=== PATIENT | female | born 1965 | race Caucasian/White ===

== ENCOUNTER 2017-10-25 07:31 | Inpatient (IN) | payer MEDICARE, BC ==
[2017-10-25 08:16] LABS: #Lymphocytes 0.6 thou/uL (1.20-3.40); #Monocytes 0.3 thou/uL (0.11-0.59); #Neutrophils 14.9 thou/uL (1.40-6.50); %Basophils 0.1 % (0.0-1.0); %Eosinophils 0.1 % (0.0-10.0); Hematocrit 47.7 % (36.0-47.0); Mean Platelet Volume 7.7 fL (7.4-10.4); Red Blood Cell (RBC) Count 5.35 mill/uL (4.20-5.40); White Blood Cell (WBC) Count 15.9 thou/uL (4.8-10.8)
[2017-10-25] MEDS ORDERED: Ondansetron HCl/PF 4 MG/2 ML Vial ONE ×2 (08:16→11:40)
[2017-10-25 08:36] LABS: ALT (SGPT) 13 U/L (8-55); AST (SGOT) 12 U/L (5-34); Alkaline Phosphatase 65 U/L (40-150); Anion Gap 16 mmol/L (10-20); BUN (Urea Nitrogen) 16 mg/dL (9.8-20.1); Bilirubin, Total 0.4 mg/dL (0.2-1.2); Calc. Creatinine Clearance 0 mL/min (70-130); Calcium 10.3 mg/dL (7.8-10.44); Carbon Dioxide 22 mmol/L (22-29); Chloride 101 mmol/L (98-107); Estimated GFR-MDRD 75; Lipase 6 U/L (8-78); Protein, Total 8.3 g/dL (6.0-8.3)
[2017-10-25] MEDS ORDERED: Morphine 4 MG/ML VIAL ONE (08:45)
[2017-10-25 09:03] LABS: Bilirubin Negative (Negative); Blood, Urine Moderate (Negative); Glucose, Urine (Dipstick) >=1000 mg/dL (Negative); Ketone, Urine Trace mg/dL (Negative); Nitrite Negative (Negative); Protein, Urine (Dipstick) 100 mg/dL (Neg-Trace); Urobilinogen 0.2 mg/dL (0.2-1.0)
[2017-10-25 09:04] LABS: Bacteria/HPF Rare-Few HPF (None Seen); Hyaline Casts/LPF 4-6 HYALINE CAST LPF (0-3 Hyaline); Squamous Epithelial 0-3 HPF (0-3)
[2017-10-25] MEDS ORDERED: Benzocaine 20% Spray 60 ML CAN ONE (11:13)
--- NOTE | 2017-10-25 11:41 | CT ---
ABDOMEN CT WITHOUT CONTRAST PELVIC CT WITH CONTRAST: Date: 10/25/17 COMPARISON: 02/26/13. HISTORY: Epigastric pain. Nausea. Vomiting. Multiple surgeries. TECHNIQUE: Abdomen and pelvic CT are performed with IV and enteric contrast. Coronal reformatted images are subm itted for interpretation. FINDINGS: ABDOMEN CT: Heart size is within normal limits. No pericardial effusion. Descending thoracic aorta and abdominal aorta have a normal caliber. No periaortic fat stranding. Visualized lung parenchyma are unremarkable . There is complex perihepatic fluid. The liver, spleen, pancreas, and adrenal glands have appropriat e enhancement. Mild atrophy of the head and proximal pancreatic body. Gallbladder is surgically absent. There is a 1.3 x 0.8 cm calculus in the right ureteropelvic junction with associated moderate right-s ided hydronephrosis. There is a nonobstructing 3.0 mm calcification in the lower pole of the right ki dney. There is slight delay in the enhancement of the right kidney when compared to the contralateral side. The right ureter and the left intra and extrarenal collecting system are decompressed. No mesenteric mass, lymphadenopathy, or free air. Symmetric attenuation of the psoas muscles. Stomach and duodenum and proximal small bowel loops are unremarkable. Mid small bowel loops (jejunum) have dilatation with contrast and fluid. There is a ventral abdominal wall hernia containing mesente ry and fluid. The presence of fluid is similar to the prior examination. There is a segment of small bowel extending through the hernia with evidence of local fecalization. There is an anastomotic sutur e. There is dilatation of the afferent loops and decompression of the efferent loops. The transition point is felt to be at the level of the anastomosis. Distal small bowel loops are decompressed. Ileoc ecal junction is normal. Small amount of fluid at the cecal apex is noted. There is a small amount of fluid in the right paracolic gutter. Colon is decompressed. PELVIC CT: Uterus and adnexal structures are unremarkable. Urinary bladder is decompressed. No pelvic mass, lymp hadenopathy, free air, or free fluid. There are no lytic or blastic lesions in the osseous structures. IMPRESSION: 1. Ventral abdominal wall hernia containing mesentery and segment of small bowel at the defect. Ther e is an anastomosis at the level of the herniated small bowel. There is fecalization. There is associ ated obstruction which may in part be due to surgical anastomosis and in part due to ventral abdomina l wall hernia. Surgical consultation is recommended. 2. Moderate right-sided obstructive uropathy secondary to large calculus in the right ureteropelvic junction. Results of study discussed with Dr. Bean on 10/25/17 at 1038 hours. CODE CR. POS: MARIA M
[2017-10-25] MEDS ORDERED: Glycopyrrolate 0.2 MG/ML 5 ML SYRINGE ONE (11:58)
[2017-10-25] MEDS ORDERED: Propofol 200 MG/20 ML VIAL ONE (11:58)
[2017-10-25] MEDS ORDERED: Lidocaine 1% PF 5 ML VIAL ONE (11:58)
[2017-10-25] MEDS ORDERED: Succinylcholine Chloride 20 MG/ML 10 ml SYRINGE FS ONE (11:58)
[2017-10-25] MEDS ORDERED: Midazolam HCl 2 mg/2 ml Vial ONE (12:47)
[2017-10-25] MEDS ORDERED: Fentanyl 100 MCG/2 ML VIAL ONE ×2 (12:47→15:14)
[2017-10-25] MEDS ORDERED: Iothalamate Meglumine 60% 50 ML VIAL FS ONE (12:57)
[2017-10-25] MEDS ORDERED: cefTRIAXone\\ROCEPHIN 1 GM VIAL ONE (13:54)
[2017-10-25] MEDS ORDERED: Labetalol HCl 100 MG/20 ML VIAL ONE (14:32)
[2017-10-25] MEDS ORDERED: hydrALAZINE 20 MG/ML VIAL ONE (14:44)
[2017-10-25] MEDS ORDERED: Dextrose 5% in Water 1,000 ML IV PRN (16:17)
[2017-10-25] MEDS ORDERED: Dextrose 50% Abboject 50 ML SYRINGE SLOW IVP PRN (16:17)
[2017-10-25] MEDS: hydrALAZINE 20 MG/ML VIAL SLOW IVP PRN (16:40)
[2017-10-25] MEDS: Sodium Chloride 0.9% 1,000 ML IV SCH (16:42)
[2017-10-25] MEDS: Morphine 2 mg/2ml in 0.9% NaCl PF SYRINGE SLOW IVP PRN (16:51)
[2017-10-25 16:55] LABS: #Lymphocytes 0.9 thou/uL (1.20-3.40); #Monocytes 0.9 thou/uL (0.11-0.59); #Neutrophils 15.1 thou/uL (1.40-6.50); %Basophils 0.2 % (0.0-1.0); %Eosinophils 0.1 % (0.0-10.0); %Lymphocytes 5.2 % (21.0-51.0); %Monocytes 5.1 % (0.0-10.0); Hematocrit 43.8 % (36.0-47.0); Mean Platelet Volume 7.5 fL (7.4-10.4); Red Blood Cell (RBC) Count 4.91 mill/uL (4.20-5.40); White Blood Cell (WBC) Count 16.9 thou/uL (4.8-10.8)
[2017-10-25 17:01] LABS: Hemoglobin A1c 7.4 % (4.0-6.0)
[2017-10-25 17:09] LABS: Anion Gap 15 mmol/L (10-20); BUN (Urea Nitrogen) 15 mg/dL (9.8-20.1); Calc. Creatinine Clearance 0 mL/min (70-130); Calcium 9.3 mg/dL (7.8-10.44); Carbon Dioxide 20 mmol/L (22-29); Chloride 104 mmol/L (98-107); Estimated GFR-MDRD 84
[2017-10-25] MEDS ORDERED: Labetalol HCl 100 MG/20 ML VIAL SLOW IVP PRN (17:25)
--- NOTE | 2017-10-25 17:30 | PDOC.PN ---
- Subjective Encounter Start Date: 10/25/17 Encounter Start Time: 17:29 Pt seen for management of hypertensive urgency. Denies headache. Denies nausea or vomiting. c/o abdo pain. - Objective MAR Reviewed: Yes Vital Signs & Weight: Vital Signs (12 hours) Pulse 10/25/17 16:40 125 H Result Diagrams: 10/25/17 16:47 10/25/17 16:42 EKG Reviewed by me: Yes (Tele: sinus tachycardia) Phys Exam - Physical Examination Obese HEENT: sclera anicteric Dry mucsae, NG tube+ Respiratory: clear to auscultation bilateral Cardiovascular: RRR sluggish bowel sounds Neurological: moves all 4 limbs Psychiatric: normal affect Dx/Plan (1) Hypertensive urgency Code(s): I16.0 - HYPERTENSIVE URGENCY Status: Acute (2) DM2 (diabetes mellitus, type 2) Status: Chronic (3) Dyslipidemia Code(s): E78.5 - HYPERLIPIDEMIA, UNSPECIFIED Status: Chronic - Plan DVT proph w/SCDs * . Continue PRN IV hydralazine, add PRN IV labetalol. Start clonidine patch. Continue accuchecks, insulin sliding scale. Hold statin for now (pt is NPO). Continue IV fluids. Pain management per primary service. Review of Systems - Review of Systems Cardiovascular: negative: Chest Pain, Palpitations, Orthopnea, Paroxysmal Noc. Dyspnea, Edema, Light Headedness Gastrointestinal: Abdominal Pain, Constipation Neurological: negative: Weakness, Numbness, Incoordination, Change in Speech, Confusion, Seizures - Medications/Allergies Allergies/Adverse Reactions: Allergies Allergy/AdvReac Type Severity Reaction Status Date / Time No Known Allergies Allergy Unverified 10/25/17 16:08 Medications: Current Medications Clonidine (Nqkfueto-Ynm-3 Patch) 0.1 mg TD Q7DAYS ANNELISE Dextrose/Water (Dextrose 50%) 25 gm SLOW IVP PRN PRN PRN Reason: Hypoglycemia Glucagon (Glucagon) 1 mg IM PRN PRN PRN Reason: Hypoglycemia Hydralazine HCl (Apresoline) 10 mg SLOW IVP Q4H PRN PRN Reason: Hypertension Last Admin: 10/25/17 16:40 Dose: 10 mg Acetaminophen 1,000 mg/ Device 100 mls @ 400 mls/hr IVPB Q6H PRN PRN Reason: Fever/Mild Pain Stop: 10/26/17 16:18 Dextrose/Water (D5w) 1,000 mls @ 0 mls/hr IV .Q0M PRN; As Directed PRN Reason: Hypoglycemia Sodium Chloride (Normal Saline 0.9%) 1,000 mls @ 120 mls/hr IV .Q8H20M ANNELISE Last Admin: 10/25/17 16:42 Dose: 1,000 mls Piperacillin Sod/Tazobactam (Sod 3.375 gm/ Sodium Chloride) 100 mls @ 200 mls/ hr IVPB Q6HR [facility] Insulin Human Lispro (Humalog) 0 units SC .MILD SLIDING SCALE PRN PRN Reason: Mild Correctional Scale Labetalol HCl (Normodyne) 10 mg SLOW IVP Q4H PRN PRN Reason: SBP Greater Than 180 Morphine Sulfate/Sodium Chloride (Morphine 0.9% Nacl Pf 2 Mg/2ml) 2 mg SLOW IVP Q4H PRN PRN Reason: Pain Last Admin: 10/25/17 16:51 Dose: 2 mg Pantoprazole Sodium (Protonix) 40 mg IVP DAILY [facility] Tamsulosin HCl (Flomax) 0.4 mg PO DAILY [facility]
[2017-10-25] MEDS: Labetalol HCl 100 MG/20 ML VIAL SLOW IVP PRN ×2 (17:41→21:46)
--- NOTE | 2017-10-25 17:43 | OP ---
DATE OF SERVICE: 10/25/2017 PREOPERATIVE DIAGNOSIS: Right large ureteropelvic junction stone. POSTOPERATIVE DIAGNOSIS: Right large ureteropelvic junction stone. PROCEDURE: Cystoscopy, no need for retrograde given the remaining contrast from the IV during the CT scan and placement of 6 x 26 double-J ureteral stent. SURGEON: Neelima Perez M.D. ANESTHESIA: General with ET tube. FINDINGS: Retained contrast in the hydronephrotic right renal collecting system , adequate placement of stent. ESTIMATED BLOOD LOSS: None. COMPLICATIONS: None. DRAIN REMAININ x 26 double-J. SPECIMEN: Urine from the right renal pelvis. INDICATIONS: The patient is a 52-year-old female who was admitted acutely with concern for partial small-bowel obstruction as well as an obstructing right UPJ stone, which is relatively asymptomatic from a pain standpoint and concern for UTI, so she was sent for urgent stent. DESCRIPTION OF PROCEDURE. The patient was brought to the room by anesthesia, laid on the table in the supine position after given general anesthetic, legs placed in lithotomy position and her perineum was prepped and draped in sterile fashion. Using a 21 Nepali scope and 30-degree lens, it was traversed and bladder inspected. No lesions were noted. Right orifice was intubated with a Pollack catheter and as fluoroscopy was getting set, it was advanced up to the level of stone where resistance was noted and at this point, fluoroscopy was obtained before even adding contrast and this stent was right at the level of the stone with contrast filling the hydronephrotic collecting system. It could not push beyond the stone itself, so a wire was used to go beyond it and that went easily and then the Pollack catheter was placed over the wire. The wire removed. No hydronephrotic drip was noted, but approximately 12 mL of yellow urine was collected and sent for specimen. Then, measurements were taken for 6 x 26 that was placed over the wire with good curl visualized in the renal pelvis via fluoroscopy and a good coil visualized in the bladder via cystoscopy with effuse noted. Scope was broken apart, bladder drained and then removed in its entirety. The patient tolerated the procedure well and was then awakened and transferred to the PACU in stable condition. NISSA
[2017-10-25] MEDS: HumaLOG 300 UNITS/3 ML VIAL SC PRN ×2 (17:44→22:33)
[2017-10-25 17:59] VITALS: BMI 49.1
[2017-10-25] MEDS ORDERED: cloNIDine 0.1mg/24 Hour PATCH TD SCH (18:00)
[2017-10-25] MEDS ORDERED: FLU VACC QS2017-18 36 mo. & older 0.5 ML SYRINGE IM ONE (18:45)
[2017-10-25] MEDS: Piperacillin/Tazobactam 3.375 GM in Sodium Chloride 0.9% 100 ML IVPB SCH ×2 (18:59→23:37)
--- NOTE | 2017-10-25 19:37 | HP ---
CHIEF COMPLAINT: Abdominal pain. HISTORY: Ms. Ralf Carcamo is a 52-year-old woman with a 1-day history of abdominal pain. She states that this came on yesterday morning and has been slowly worsening since then with nausea and vomitin g. She had a bowel movement on , but no bowel movement yesterday or today but has been passi ng some gas. She has had several episodes of bowel obstruction in the past and these symptoms are si milar to those episodes. Nothing that she has tried to do at home has helped, [facility]. She denies any dysuria, frequency, or urgency and she does complain of pain in her back as well as her abdomen. PAST MEDICAL HISTORY: Hypertension and diabetes. PAST SURGICAL HISTORY: Cholecystectomy; hernia repair x2, one open with bowel resection and one lapa roscopic with mesh placement; also a history of appendectomy. ALLERGIES: She has no known drug allergies. OUTPATIENT MEDICATIONS: Include Wellbutrin, Zoloft, atenolol, amlodipine, Erick, and Zantac. REVIEW OF SYSTEMS: Ten-system review of systems is negative except per HPI and the following: the pa shy does state that she is having pain in her back and since the NG tube was placed, she is having pain in her throat. She denies any fevers or chills. PHYSICAL EXAMINATION: VITAL SIGNS: Heart rate was elevated in the emergency room in the 120s and came down somewhat after pain medication and IV fluids. Blood pressure was in the high range and got up as far as 202/116. S he was 96% saturated on room air with normal respiratory rate. GENERAL: Reveals a morbidly obese woman in no acute distress with an NG tube in place with bilious t hick output. HEENT: Unremarkable. NECK: Supple, without lymphadenopathy or thyroid nodules. HEART: Slightly tachycardic but regular, without murmurs, rubs, or gallops. LUNGS: Clear bilaterally. ABDOMEN: Soft and nondistended. She has an easily reducible ventral hernia with what seems to be a separate umbilical hernia just inferior to this, which is also reducible, although it is somewhat ten adela. She does have bowel sounds present, although these are somewhat difficult to hear due to her olga dy habitus. She has a healed upper midline incision and does not exhibit rigidity, rebound, or guard ing. No palpable masses. EXTREMITIES: Warm and well perfused without edema. NEUROLOGIC: No focal deficits. PSYCHIATRIC: Alert, oriented, and appropriate. LABORATORY AND X-RAY FINDINGS: Showed an elevated white count on admission at 15.9, hematocrit of 47 .7, and platelets of 380. Electrolytes were unremarkable. Glucose was elevated at 251 and urine chuck wed greater than 1000 glucose. She also had small leukocyte esterase and greater than 50 white cells in her urine with 0-3 squamous epithelial cells and a few bacteria. CT images are reviewed and I ag ree with the written report. The patient has a recurrent ventral hernia containing loops of small in testine including her previous small bowel anastomosis. There is a transition point near the hernia, although it is difficult to identify exactly where it is. The hernia is very broad based; however, there is no edema or stranding in the mesentery to suggest ischemia or incarceration. She was incide ntally noted to have a large partially-obstructing stone at the right ureteropelvic junction with res ulting hydronephrosis. ASSESSMENT: Small-bowel obstruction, partial by history as the patient states that she has been pass ing gas. Her abdominal pain has improved quite a bit since placement of the NG tube and she is no lo nger nauseated. She has previously responded to conservative management and we will give this a tria l. She has undergone at least 2 previous repairs of her ventral hernia and has a very high risk for recurrence due to a body mass index of 49 and what appears to be uncontrolled diabetes. I will ask M leslie to consult for her uncontrolled diabetes and hypertension and I have ordered a hemoglobin A1c . She states that usually her blood sugars are in the 120s to 140s in the morning and less than 100 at night. Urology was consulted in the emergency room for her partially-obstructing ureteropelvic ju nction stone in the setting of lab evidence of urinary tract infection. She does not appear to be se ptic, but certainly has a risk for this and Dr. Perez has placed a ureteral stent to relieve the hyd ronephrosis. We will keep her on antibiotics for her urinary tract infection and follow up with Diego carrillo regarding their recommendations for management of this problem. I suspect that the patient's bow el obstruction is due to adhesions. The anastomosis appears to be patent on her CT scan, so hopefull y, this will resolve with bowel decompression and rest.
--- NOTE | 2017-10-25 19:41 | RAD ---
RETROGRADE PYELOGRAM 10/25/17 COMPARISON: None. HISTORY: Stent placement. FINDINGS: A single image from a retrograde pyelogram is provided. There is cone down view of a dilated renal co llecting system and hydronephrotic kidney provided. There is a wire curling in the dilated upper pole calyx. IMPRESSION: Hydronephrosis with wire curling within the hydronephrotic kidney. POS: LIZZETH
[2017-10-25] MEDS: Morphine 5 mg/5 ml in 0.9% NaCl/PF SYRINGE SLOW IVP PRN (20:04)
[2017-10-25] MEDS: Acetaminophen 1,000 MG in Premix Bag 1 BAG IVPB PRN (21:49)
[2017-10-25] MEDS ORDERED: diphenhydrAMINE 50 MG/ML VIAL IVP PRN (22:14)
[2017-10-25] MEDS ORDERED: Ketorolac Tromethamine 30 MG/ML VIAL IVP SCH (22:15)
[2017-10-26] MEDS: Labetalol HCl 100 MG/20 ML VIAL SLOW IVP PRN ×2 (02:36→09:09)
[2017-10-26] MEDS: Sodium Chloride 0.9% 1,000 ML IV SCH ×3 (02:42→18:12)
[2017-10-26] MEDS: Piperacillin/Tazobactam 3.375 GM in Sodium Chloride 0.9% 100 ML IVPB SCH ×4 (05:53→23:45)
[2017-10-26] MEDS: Morphine 5 mg/5 ml in 0.9% NaCl/PF SYRINGE SLOW IVP PRN ×4 (05:54→15:09)
[2017-10-26] MEDS: Acetaminophen 1,000 MG in Premix Bag 1 BAG IVPB PRN ×2 (05:54→14:46)
[2017-10-26] MEDS: HumaLOG 300 UNITS/3 ML VIAL SC PRN ×3 (06:46→18:13)
[2017-10-26] MEDS: Pantoprazole 40 MG VIAL IVP SCH (09:12)
--- NOTE | 2017-10-26 10:03 | RAD ---
1 VIEW ABDOMEN: Date: 10/26/17 HISTORY: Small bowel obstruction. COMPARISON: None. FINDINGS: There is a nasogastric tube in the left upper quadrant. There are prominent, likely fluid-filled/cont rast filled loops of small bowel in the left hemiabdomen. Fecal material in a nondistended right dequan colon is noted. Note is made of a right-sided ureteral stent. IMPRESSION: Fluid-filled/contrast filled prominent loops of small bowel in the left hemiabdomen. Partial obstruct silke process cannot be excluded. Continued surveillance. POS: LIZZETH
--- NOTE | 2017-10-26 10:15 | PDOC.PN ---
- Subjective Encounter Start Date: 10/26/17 Encounter Start Time: 07:40 Pt seen for followup re: hypertensive urgency. Denies chest pain, shortness of breath, fevers or chills. - Objective MAR Reviewed: Yes Vital Signs & Weight: Vital Signs (12 hours) Temp Pulse Resp BP BP Pulse Ox 10/26/17 07:40 98.8 F 106 H 20 187/105 H 95 10/26/17 06:36 98 10/26/17 04:00 99.2 F 105 H 20 167/86 H 94 L 10/26/17 02:36 114 H 180/103 H 10/26/17 01:00 99.7 F H 102 H 18 170/96 H 95 Weight Weight 260 lb I&O: 10/25/17 10/26/17 10/27/17 06:59 06:59 06:59 Intake Total 360 Output Total 875 Balance -515 Result Diagrams: 10/25/17 16:47 10/25/17 16:42 Additional Labs: Accuchecks 10/26/17 10/25/17 05:37 20:12 POC Glucose 181 H 242 H Phys Exam - Physical Examination Morbid obesity NG tube Neck: no JVD Respiratory: clear to auscultation bilateral Cardiovascular: RRR Neurological: moves all 4 limbs Psychiatric: normal affect Dx/Plan (1) Hypertensive urgency Code(s): I16.0 - HYPERTENSIVE URGENCY Status: Acute (2) DM2 (diabetes mellitus, type 2) Status: Chronic (3) Dyslipidemia Code(s): E78.5 - HYPERLIPIDEMIA, UNSPECIFIED Status: Chronic - Plan * . Additional dose of hydralazine (20 mg IV), monitor vital signs. Continue accuchecks, insulin sliding scale. Continue to titrate antihypertensives. Review of Systems - Review of Systems Respiratory: negative: Cough, Dry, Shortness of Breath, Hemoptysis, SOB with Excertion, Pleuritic Pain, Sputum, Wheezing Cardiovascular: negative: Chest Pain, Palpitations, Orthopnea, Paroxysmal Noc. Dyspnea, Edema, Light Headedness - Medications/Allergies Allergies/Adverse Reactions: Allergies Allergy/AdvReac Type Severity Reaction Status Date / Time No Known Allergies Allergy Unverified 10/25/17 16:08 Medications: Current Medications Clonidine (Udwyxwzf-Nsp-4 Patch) 0.1 mg TD Q7D ANNELISE Last Admin: 10/25/17 18:59 Dose: 0.1 mg Dextrose/Water (Dextrose 50%) 25 gm SLOW IVP PRN PRN PRN Reason: Hypoglycemia Diphenhydramine HCl (Benadryl) 25 mg IVP HSPRN PRN PRN Reason: Insomnia Last Admin: 10/25/17 22:27 Dose: 25 mg Glucagon (Glucagon) 1 mg IM PRN PRN PRN Reason: Hypoglycemia Hydralazine HCl (Apresoline) 10 mg SLOW IVP Q4H PRN PRN Reason: Hypertension Last Admin: 10/25/17 16:40 Dose: 10 mg Acetaminophen 1,000 mg/ Device 100 mls @ 400 mls/hr IVPB Q6H PRN PRN Reason: Fever/Mild Pain Stop: 10/26/17 16:18 Last Admin: 10/26/17 05:54 Dose: 100 mls Dextrose/Water (D5w) 1,000 mls @ 0 mls/hr IV .Q0M PRN; As Directed PRN Reason: Hypoglycemia Sodium Chloride (Normal Saline 0.9%) 1,000 mls @ 120 mls/hr IV .Q8H20M [facility] Last Admin: 10/26/17 02:42 Dose: 1,000 mls Piperacillin Sod/Tazobactam (Sod 3.375 gm/ Sodium Chloride) 100 mls @ 200 mls/ hr IVPB Q6HR [facility] Last Admin: 10/26/17 05:53 Dose: 100 mls Insulin Human Lispro (Humalog) 0 units SC .MILD SLIDING SCALE PRN PRN Reason: Mild Correctional Scale Last Admin: 10/26/17 06:46 Dose: 2 unit Labetalol HCl (Normodyne) 10 mg SLOW IVP Q4H PRN PRN Reason: SBP Greater Than 180 Last Admin: 10/26/17 09:09 Dose: 10 mg Morphine Sulfate/Sodium Chloride (Morphine 0.9% Nacl Pf 2 Mg/2ml) 2 mg SLOW IVP Q4H PRN PRN Reason: Pain Last Admin: 10/25/17 16:51 Dose: 2 mg Morphine Sulfate/Sodium Chloride (Morphine 0.9% Nacl/Pf 5 Mg/5 M) 6 mg SLOW IVP Q2H PRN PRN Reason: Moderate to Severe Pain (6-10) Last Admin: 10/26/17 09:29 Dose: 6 mg Pantoprazole Sodium (Protonix) 40 mg IVP DAILY ANNELISE Last Admin: 10/26/17 09:12 Dose: 40 mg Tamsulosin HCl (Flomax) 0.4 mg PO DAILY ANNELISE Trazodone HCl (Desyrel) 50 mg PO HSPRN PRN PRN Reason: Insomnia
[2017-10-26] MEDS ORDERED: hydrALAZINE 20 MG/ML VIAL SLOW IVP SCH ×2 (10:45→19:00)
[2017-10-26] MEDS ORDERED: Chloraseptic Spray 180 ml Bottle PO PRN (11:10)
[2017-10-26] MEDS ORDERED: Cepastat Lozenges 1 LOZ PO PRN (11:10)
[2017-10-26] MEDS ORDERED: Oxymetazoline HCl 0.05% ( 15 ML ) NASAL PRN (11:25)
[2017-10-26] MEDS ORDERED: Triamterene/Hydrochlorothiazide 37.5 mg/25 mg Tablet PO SCH (12:00)
[2017-10-26] MEDS ORDERED: Amlodipine 5 MG TAB PO SCH (12:00)
[2017-10-26] MEDS ORDERED: Enoxaparin Sodium 40 MG/0.4 ML SYRINGE SC SCH (12:00)
[2017-10-26] MEDS: hydrALAZINE 20 MG/ML VIAL SLOW IVP PRN ×2 (18:06→23:56)
[2017-10-26] MEDS: Losartan 25 MG TAB PO SCH (21:15)
[2017-10-26] MEDS: traZODone HCl 50 MG TAB PO PRN (21:16)
[2017-10-27] MEDS: Morphine 5 mg/5 ml in 0.9% NaCl/PF SYRINGE SLOW IVP PRN (00:52)
[2017-10-27] MEDS ORDERED: Acetaminophen 650 MG Suppository PR PRN (04:35)
[2017-10-27] MEDS ORDERED: Ketorolac Tromethamine 30 MG/ML VIAL IVP SCH (04:45)
[2017-10-27] MEDS: Piperacillin/Tazobactam 3.375 GM in Sodium Chloride 0.9% 100 ML IVPB SCH ×4 (05:10→23:34)
[2017-10-27 05:48] LABS: #Eosinphils 0.1 thou/uL (0.0-0.7); #Lymphocytes 1.5 thou/uL (1.20-3.40); #Monocytes 0.6 thou/uL (0.11-0.59); #Neutrophils 7.2 thou/uL (1.40-6.50); %Basophils 0.4 % (0.0-1.0); %Eosinophils 0.6 % (0.0-10.0); %Monocytes 6.6 % (0.0-10.0); Hematocrit 39.2 % (36.0-47.0); Mean Platelet Volume 7.6 fL (7.4-10.4); Red Blood Cell (RBC) Count 4.34 mill/uL (4.20-5.40); White Blood Cell (WBC) Count 9.4 thou/uL (4.8-10.8)
[2017-10-27 06:09] LABS: ALT (SGPT) 10 U/L (8-55); AST (SGOT) 12 U/L (5-34); Alkaline Phosphatase 49 U/L (40-150); Anion Gap 13 mmol/L (10-20); BUN (Urea Nitrogen) 11 mg/dL (9.8-20.1); Bilirubin, Total 0.5 mg/dL (0.2-1.2); Calc. Creatinine Clearance 183 mL/min (70-130); Calcium 9.2 mg/dL (7.8-10.44); Carbon Dioxide 20 mmol/L (22-29); Chloride 108 mmol/L (98-107); Estimated GFR-MDRD Greater than 90; Globulin 3.2 g/dL (2.4-3.5); Magnesium 2.1 mg/dL (1.6-2.6); Phosphorus 2.3 mg/dL (2.3-4.7); Protein, Total 6.8 g/dL (6.0-8.3)
[2017-10-27] MEDS: Pantoprazole 40 MG VIAL IVP SCH (08:06)
[2017-10-27] MEDS: Triamterene/Hydrochlorothiazide 37.5 mg/25 mg Tablet PO SCH (08:06)
[2017-10-27] MEDS: Amlodipine 5 MG TAB PO SCH (08:06)
[2017-10-27] MEDS: Tamsulosin HCl 0.4 MG CAP PO SCH ×2 (08:06→08:09)
[2017-10-27] MEDS: Enoxaparin Sodium 40 MG/0.4 ML SYRINGE SC SCH (08:07)
[2017-10-27] MEDS: Sodium Chloride 0.9% 1,000 ML IV SCH ×3 (10:17→18:22)
[2017-10-27] MEDS: Morphine 2 mg/2ml in 0.9% NaCl PF SYRINGE SLOW IVP PRN ×2 (12:14→20:15)
--- NOTE | 2017-10-27 14:01 | RAD ---
GASTROGRAFIN SMALL BOWEL EXAM: HISTORY: Partial small bowel obstruction. COMPARISON: Correlation is made to abdominal CT of 10/25/17. FINDINGS: Lokie Driver film shows some residual contrast in the colon from the prior CT. There is a right ureteral st ent in place. There are gas-filled mildly dilated loops of small bowel in the left abdomen. Gastrografin was infused via an indwelling NG tube and sequential images were obtained. Initial 15 m inute, 30 minutes, and 45 minute images show mild dilatation of the jejunal loops with some fold thic kening. On the 1 hour and 1 hour 30 minute films, there is some ileal opacification. Some proximal ileal loo ps appear dilated; however, the distal ileal loops are normal caliber. Contrast is seen opacifying t he entire colon by 1 hour 30 minutes. IMPRESSION: Mild dilatation of proximal mid, mid, and mid small bowel loops. Findings may represent a low-grade partial small bowel obstruction. Contrast does opacify the colon by 1 hour and 30 minutes. POS: MARIA M
--- NOTE | 2017-10-27 14:04 | PRG ---
DATE OF SERVICE: 10/27/2017 SUBJECTIVE: The patient feels significantly better than upon admission on Friday. Her abdomen is no longer tender or painful and she originally had stent pain that now has resolved and is not too bothersome. OBJECTIVE: She has been afebrile with a T-max of 99.1, heart rate is still tachycardic and has not really changed from the 1-teens area and she is hypertensive. Her output has been measured as toilet for her urine. I would actually like this to be recorded as she has had significant output from the NG tube and we want to make sure she is staying hydrated enough from a stone standpoint. On exam, she is sitting up in a chair with the NG tube in place and appears comfortable in no distress. Her white count has come down. Her creatinine has stayed normal. The urinalysis from the OR was not sent for micro as requested, but the cultures from both the ER and OR are negative. Of note, the stone is seen on further x-rays that have been obtained for following her bowel--so it is not UA. It appears in the renal pelvis at this time. ASSESSMENT AND PLAN: This is a 52-year-old female admitted with partial small- bowel obstruction and obstructing right ureteral stone, status post stent on 07/2017 doing well. From my standpoint when she is healed from her small-bowel obstruction and discharged, she can follow up with me to discuss definitive stone management based on the size and location. I anticipate that I would actually treat this as a staged procedure giving her ESWL followed by a separate ureteroscopy if needed because both procedures will be difficult and less efficacious given her size. At this time, when General Surgery says she is safe to go, and she is at home feeling well, she should call the office to set up followup for definitive stone therapy and to get the stent out shortly thereafter. NISSA
[2017-10-27] MEDS: Acetaminophen 325 MG TAB PO PRN (14:26)
[2017-10-27] MEDS ORDERED: MD-Gastroview 120 ML BOT ONE (17:26)
--- NOTE | 2017-10-27 17:56 | PDOC.PN ---
- Subjective Encounter Start Date: 10/27/17 Encounter Start Time: 17:54 Pt seen for followup re: hypertensive urgency. No complaints today. - Objective Vital Signs & Weight: Vital Signs (12 hours) Temp Pulse Resp BP Pulse Ox 10/27/17 16:00 99.0 F 118 H 14 173/91 H 93 L 10/27/17 12:00 98.8 F 118 H 20 178/99 H 98 10/27/17 08:06 118 H 10/27/17 08:00 98.7 F 118 H 16 156/75 H 98 Weight Admit Weight 260 lb Weight 260 lb I&O: 10/26/17 10/27/17 10/28/17 06:59 06:59 06:59 Intake Total 360 2980 Output Total 1035 1525 Balance -675 1455 Result Diagrams: 10/27/17 04:54 10/27/17 04:54 Additional Labs: Accuchecks 10/27/17 10/26/17 05:09 20:02 POC Glucose 141 H 147 H Phys Exam - Physical Examination Morbid obesity HEENT: sclera anicteric Respiratory: clear to auscultation bilateral S1, S2, tachy Gastrointestinal: soft Musculoskeletal: pulses present Neurological: moves all 4 limbs Psychiatric: normal affect Dx/Plan (1) Hypertensive urgency Code(s): I16.0 - HYPERTENSIVE URGENCY Status: Acute (2) DM2 (diabetes mellitus, type 2) Status: Chronic (3) Dyslipidemia Code(s): E78.5 - HYPERLIPIDEMIA, UNSPECIFIED Status: Chronic - Plan DVT proph w/lovenox * . Start metoprolol 25 mg BID, monitor vital signs and titrate antihypertensives as needed. Pt bad bowel movement. Now on oral diet. Resume statin and Sertraline. Review of Systems - Review of Systems Respiratory: negative: Cough, Dry, Shortness of Breath, Hemoptysis, SOB with Excertion, Pleuritic Pain, Sputum, Wheezing Cardiovascular: negative: Chest Pain, Palpitations, Orthopnea, Paroxysmal Noc. Dyspnea, Edema, Light Headedness - Medications/Allergies Allergies/Adverse Reactions: Allergies Allergy/AdvReac Type Severity Reaction Status Date / Time No Known Allergies Allergy Unverified 10/25/17 16:08 Medications: Current Medications Acetaminophen (Tylenol) 650 mg PO Q4H PRN PRN Reason: Headache/Fever or Mild Pain Last Admin: 10/27/17 14:26 Dose: 650 mg Acetaminophen (Tylenol) 650 mg [place] Q4H PRN PRN Reason: Headache/Fever or Pain Amlodipine Besylate (Norvasc) 5 mg PO DAILY [facility] Last Admin: 10/27/17 08:06 Dose: 5 mg Clonidine (Aemtknrx-Iyq-1 Patch) 0.1 mg TD Q7D [facility] Last Admin: 10/25/17 18:59 Dose: 0.1 mg Dextrose/Water (Dextrose 50%) 25 gm SLOW IVP PRN PRN PRN Reason: Hypoglycemia Diphenhydramine HCl (Benadryl) 25 mg IVP HSPRN PRN PRN Reason: Insomnia Last Admin: 10/25/17 22:27 Dose: 25 mg Enoxaparin Sodium (Lovenox) 40 mg SC 0900 [facility] Last Admin: 10/27/17 08:07 Dose: 40 mg Glucagon (Glucagon) 1 mg IM PRN PRN PRN Reason: Hypoglycemia Hydralazine HCl (Apresoline) 10 mg SLOW IVP Q4H PRN PRN Reason: Hypertension Last Admin: 10/26/17 23:56 Dose: 10 mg Dextrose/Water (D5w) 1,000 mls @ 0 mls/hr IV .Q0M PRN; As Directed PRN Reason: Hypoglycemia Sodium Chloride (Normal Saline 0.9%) 1,000 mls @ 120 mls/hr IV .Q8H20M [facility] Last Admin: 10/27/17 10:17 Dose: Not Given Piperacillin Sod/Tazobactam (Sod 3.375 gm/ Sodium Chloride) 100 mls @ 200 mls/ hr IVPB Q6HR [facility] Last Admin: 10/27/17 12:14 Dose: 100 mls Insulin Human Lispro (Humalog) 0 units SC .MILD SLIDING SCALE PRN PRN Reason: Mild Correctional Scale Last Admin: 10/26/17 18:13 Dose: 2 unit Labetalol HCl (Normodyne) 10 mg SLOW IVP Q4H PRN PRN Reason: SBP Greater Than 180 Last Admin: 10/26/17 09:09 Dose: 10 mg Losartan Potassium (Cozaar) 100 mg PO QPM [facility] Last Admin: 10/26/17 21:15 Dose: 100 mg Metoprolol Tartrate (Lopressor) 25 mg PO BID [facility] Morphine Sulfate/Sodium Chloride (Morphine 0.9% Nacl Pf 2 Mg/2ml) 2 mg SLOW IVP Q4H PRN PRN Reason: Pain Last Admin: 10/27/17 12:14 Dose: 2 mg Morphine Sulfate/Sodium Chloride (Morphine 0.9% Nacl/Pf 5 Mg/5 M) 6 mg SLOW IVP Q2H PRN PRN Reason: Moderate to Severe Pain (6-10) Last Admin: 10/27/17 00:52 Dose: 6 mg Oxymetazoline HCl (Oxymetazoline Hcl) 0 sprays NASAL Q12H PRN PRN Reason: Congestion Last Admin: 10/26/17 12:09 Dose: 2 spr Pantoprazole Sodium (Protonix) 40 mg IVP DAILY [facility] Last Admin: 10/27/17 08:06 Dose: 40 mg Phenol (Chloraseptic [place] 180 Ml Bot) 0 ml PO BIDPRN PRN PRN Reason: Sore Throat Last Admin: 10/26/17 12:09 Dose: 1 spr Tamsulosin HCl (Flomax) 0.4 mg PO DAILY [facility] Last Admin: 10/27/17 08:09 Dose: Not Given Throat Lozenges (Cepastat Lozenges) 1 toñito PO Q2H PRN PRN Reason: Sore Throat Last Admin: 10/26/17 12:09 Dose: 1 toñito Trazodone HCl (Desyrel) 50 mg PO HSPRN PRN PRN Reason: Insomnia Last Admin: 10/26/17 21:16 Dose: 50 mg Triamterene/HCTZ (Maxzide-25) 1 tab PO DAILY [facility] Last Admin: 10/27/17 08:06 Dose: 1 tab
[2017-10-27] MEDS: Losartan 25 MG TAB PO SCH (20:13)
[2017-10-27] MEDS: traZODone HCl 50 MG TAB PO PRN (20:14)
[2017-10-27] MEDS: Metoprolol Tartrate 25 MG TAB PO SCH (20:14)
[2017-10-27] MEDS: HumaLOG 300 UNITS/3 ML VIAL SC PRN (20:22)
[2017-10-27] MEDS ORDERED: Atorvastatin Calcium 10 MG TAB PO SCH (21:00)
[2017-10-28] MEDS: Morphine 2 mg/2ml in 0.9% NaCl PF SYRINGE SLOW IVP PRN (03:17)
[2017-10-28] MEDS: Sodium Chloride 0.9% 1,000 ML IV SCH ×2 (04:43→11:49)
[2017-10-28] MEDS: Piperacillin/Tazobactam 3.375 GM in Sodium Chloride 0.9% 100 ML IVPB SCH ×2 (06:24→12:40)
[2017-10-28] MEDS: HumaLOG 300 UNITS/3 ML VIAL SC PRN (06:25)
[2017-10-28 08:19] VITALS: BP 185/88
[2017-10-28] MEDS: Triamterene/Hydrochlorothiazide 37.5 mg/25 mg Tablet PO SCH (08:37)
[2017-10-28] MEDS: Pantoprazole 40 MG VIAL IVP SCH (08:38)
[2017-10-28] MEDS: Amlodipine 5 MG TAB PO SCH (08:38)
[2017-10-28] MEDS: Tamsulosin HCl 0.4 MG CAP PO SCH (08:38)
[2017-10-28] MEDS: Enoxaparin Sodium 40 MG/0.4 ML SYRINGE SC SCH (08:38)
[2017-10-28] MEDS: Metoprolol Tartrate 25 MG TAB PO SCH (08:38)
[2017-10-28] MEDS: Acetaminophen 325 MG TAB PO PRN ×2 (08:39→14:20)
--- NOTE | 2017-10-28 14:54 | PDOC.PN ---
- Subjective Encounter Start Date: 10/28/17 Encounter Start Time: 08:20 Pt seen for followup re: hypertension. Denies chest pain, shortness of breath, fevers. - Objective MAR Reviewed: Yes Vital Signs & Weight: Vital Signs (12 hours) Temp Pulse Resp BP Pulse Ox 10/28/17 14:20 86 10/28/17 08:38 86 10/28/17 08:00 99.1 F 86 20 185/88 H 99 10/28/17 05:00 148/72 H 10/28/17 04:00 98.9 F 79 18 161/72 H 97 Weight Admit Weight 260 lb Weight 260 lb I&O: 10/27/17 10/28/17 10/29/17 06:59 06:59 06:59 Intake Total 2980 Output Total 1525 Balance 1455 Result Diagrams: 10/27/17 04:54 10/27/17 04:54 Additional Labs: Accuchecks 10/28/17 10/28/17 10/27/17 10:58 05:20 19:33 POC Glucose 169 H 173 H 190 H Phys Exam - Physical Examination Constitutional: NAD HEENT: moist MMs Neck: supple Respiratory: clear to auscultation bilateral Cardiovascular: RRR Gastrointestinal: soft Neurological: moves all 4 limbs Psychiatric: normal affect Skin: no rash Dx/Plan (1) Hypertension Code(s): I10 - ESSENTIAL (PRIMARY) HYPERTENSION Status: Chronic (2) DM2 (diabetes mellitus, type 2) Status: Chronic (3) Dyslipidemia Code(s): E78.5 - HYPERLIPIDEMIA, UNSPECIFIED Status: Chronic - Plan * . Continue metoprolool, add hydralazine to home meds. Plan for discharge noted, will sign off. Review of Systems - Review of Systems Respiratory: negative: Cough, Dry, Shortness of Breath, Hemoptysis, SOB with Excertion, Pleuritic Pain, Sputum, Wheezing Cardiovascular: negative: Chest Pain, Palpitations, Orthopnea, Paroxysmal Noc. Dyspnea, Edema, Light Headedness - Medications/Allergies Allergies/Adverse Reactions: Allergies Allergy/AdvReac Type Severity Reaction Status Date / Time No Known Allergies Allergy Unverified 10/25/17 16:08 Medications: Current Medications Acetaminophen (Tylenol) 650 mg PO Q4H PRN PRN Reason: Headache/Fever or Mild Pain Last Admin: 10/28/17 14:20 Dose: 650 mg Acetaminophen (Tylenol) [address] Q4H PRN PRN Reason: Headache/Fever or Pain Amlodipine Besylate (Norvasc) 5 mg PO DAILY [facility] Last Admin: 10/28/17 08:38 Dose: 5 mg Atorvastatin Calcium (Lipitor) 10 mg PO HS [facility] Last Admin: 10/27/17 20:14 Dose: 10 mg Clonidine (Bhqfwyxr-Ucz-2 Patch) 0.1 mg TD Q7D [facility] Last Admin: 10/25/17 18:59 Dose: 0.1 mg Dextrose/Water (Dextrose 50%) 25 gm SLOW IVP PRN PRN PRN Reason: Hypoglycemia Diphenhydramine HCl (Benadryl) 25 mg IVP HSPRN PRN PRN Reason: Insomnia Last Admin: 10/25/17 22:27 Dose: 25 mg Enoxaparin Sodium (Lovenox) 40 mg SC 0900 [facility] Last Admin: 10/28/17 08:38 Dose: 40 mg Glucagon (Glucagon) 1 mg IM PRN PRN PRN Reason: Hypoglycemia Hydralazine HCl (Apresoline) 10 mg SLOW IVP Q4H PRN PRN Reason: Hypertension Last Admin: 10/26/17 23:56 Dose: 10 mg Hydralazine HCl (Apresoline) 25 mg PO TID [facility] Last Admin: 10/28/17 14:20 Dose: 25 mg Dextrose/Water (D5w) 1,000 mls @ 0 mls/hr IV .Q0M PRN; As Directed PRN Reason: Hypoglycemia Sodium Chloride (Normal Saline 0.9%) 1,000 mls @ 120 mls/hr IV .Q8H20M [facility] Last Admin: 10/28/17 11:49 Dose: Not Given Piperacillin Sod/Tazobactam (Sod 3.375 gm/ Sodium Chloride) 100 mls @ 200 mls/ hr IVPB Q6HR [facility] Last Admin: 10/28/17 12:40 Dose: 100 mls Insulin Human Lispro (Humalog) 0 units SC .MILD SLIDING SCALE PRN PRN Reason: Mild Correctional Scale Last Admin: 10/28/17 06:25 Dose: 2 unit Labetalol HCl (Normodyne) 10 mg SLOW IVP Q4H PRN PRN Reason: SBP Greater Than 180 Last Admin: 10/26/17 09:09 Dose: 10 mg Losartan Potassium (Cozaar) 100 mg PO QPM [facility] Last Admin: 10/27/17 20:13 Dose: 100 mg Metoprolol Tartrate (Lopressor) 25 mg PO BID [facility] Last Admin: 10/28/17 08:38 Dose: 25 mg Morphine Sulfate/Sodium Chloride (Morphine 0.9% Nacl Pf 2 Mg/2ml) 2 mg SLOW IVP Q4H PRN PRN Reason: Pain Last Admin: 10/28/17 03:17 Dose: 2 mg Morphine Sulfate/Sodium Chloride (Morphine 0.9% Nacl/Pf 5 Mg/5 M) 6 mg SLOW IVP Q2H PRN PRN Reason: Moderate to Severe Pain (6-10) Last Admin: 10/27/17 00:52 Dose: 6 mg Oxymetazoline HCl (Oxymetazoline Hcl) 0 sprays NASAL Q12H PRN PRN Reason: Congestion Last Admin: 10/26/17 12:09 Dose: 2 spr Pantoprazole Sodium (Protonix) 40 mg IVP DAILY [facility] Last Admin: 10/28/17 08:38 Dose: 40 mg Phenol (Chloraseptic [place] 180 Ml Bot) 0 ml PO BIDPRN PRN PRN Reason: Sore Throat Last Admin: 10/26/17 12:09 Dose: 1 spr Sertraline HCl (Zoloft) 100 mg PO DAILY [facility] Last Admin: 10/28/17 08:37 Dose: 100 mg Tamsulosin HCl (Flomax) 0.4 mg PO DAILY [facility] Last Admin: 10/28/17 08:38 Dose: 0.4 mg Throat Lozenges (Cepastat Lozenges) 1 toñito PO Q2H PRN PRN Reason: Sore Throat Last Admin: 10/26/17 12:09 Dose: 1 toñito Trazodone HCl (Desyrel) 50 mg PO HSPRN PRN PRN Reason: Insomnia Last Admin: 10/27/17 20:14 Dose: 50 mg Triamterene/HCTZ (Maxzide-25) 1 tab PO DAILY [facility] Last Admin: 10/28/17 08:37 Dose: 1 tab
[2017-10-28] MEDS ORDERED: hydrALAZINE 25 MG TAB PO SCH (15:00)
[2017-10-28 16:31] VITALS: TEMP 98.1
--- NOTE | 2017-10-28 20:24 | DIS ---
PRIMARY CARE PROVIDER: Mukund Pierre M.D. DATE OF ADMISSION: 10/25/2017 DATE OF DISCHARGE: 10/28/2017 Please note that this note is being sent to the patient's primary care provider to inform him of the patient's hypertensive urgency during this hospitalization. I followed Ms. Arambula for management of hypertensive urgency. Multiple medications were tried, including clonidine patch and hydralazine. Her blood pressure improved, but not into the normal range. I have started her on hydralazine 25 mg 3 times a day. I have also advised to check her blood pressure and heart rate 3 times a day and show the readings to her primary care physician at followup.
--- NOTE | 2017-10-29 01:24 | DIS ---
DATE OF ADMISSION: 10/25/2017 DATE OF DISCHARGE: 10/28/2017 FINAL DIAGNOSES: 1. Recurrent ventral incisional hernia. 2. Partial small-bowel obstruction. 3. Morbid obesity. 4. Diabetes. 5. Hypertensive urgency. 6. Partially obstructing right ureteropelvic junction stone. 7. Urinary tract infection. HISTORY: Ms. Arambula is a 52-year-old woman who presented with a 1 day history of abdominal pain, na usea and vomiting similar to previous bouts of small-bowel obstruction. She was found on CT to have evidence of small-bowel obstruction near the level of her ventral incisional hernia, which has recurr ed. In addition, she also had a partially obstructing right kidney stone at the [facility] and evidence of UTI on urinalysis. She underwent an urgent ureteral stent placement by Dr. Perez of Urology and NG placement for bowel decompression with rapid resolution of her gastrointestinal symptoms. After a co uple days of bowel rest, a small bowel follow through was obtained. She had absolutely no pain or na usea with this and had multiple bowel movements. Her proximal small bowel loops were still somewhat dilated compared to the distal small bowel loops, but the patient was not interested in surgery, so h er NG tube was removed and she was placed on a liquid diet, which she tolerated well. She was advanc ed to full liquid diet and advised to stay on this for the next week. She is being discharged home o n this with plans to advance to a soft diet in a week and then back to a regular diet week after that . She is interested in pursuing bariatric surgery and we will refer her to the bariatric seminar to gain more information on that. She can followup with me on an as needed basis. She is to follow up with Dr. Perez in 2 weeks' time. DISCHARGE MEDICATIONS: Include her home medications of amlodipine, losartan, pravastatin, sertraline , and triamterene/hydrochlorothiazide t.i.d. In addition, she is to continue on Flomax 0.[address] per Dr. Perez and has new medications of hydralazine 25 mg p.o. b.i.d. and metoprolol 25 mg p.o . b.i.d. for her blood pressure. PROCEDURES: Include cystoscopy, ureteroscopy, and ureteral stent placement by Dr. Perez on 10/25/20 17.
--- NOTE | 2017-11-15 14:59 | EKG ---
Test Reason : Blood Pressure : / mmHG Vent. Rate : 118 BPM Atrial Rate : 118 BPM P-R Int : 138 ms QRS Dur : 086 ms QT Int : 322 ms P-R-T Axes : 053 -12 057 degrees QTc Int : 451 ms Sinus tachycardia Minimal voltage criteria for LVH, may be normal variant Borderline ECG Confirmed by KHRIS GUZMAN D.O. ([id number]), editorial writer LEO WOLFE ([id number] on 11/15/2017 2:58:57 PM Referred By: Confirmed By:KHRIS GUZMAN D.O.
== END 2017-10-28 16:53 | disposition home or self-care (01) | DRG 389 ==
LOC: ERS 07:31 → SURG B 16:05
PROVIDERS: ADMIT Surgery; ATTEND Surgery
PROC: 0T768DZ Dilation of Right Ureter with Intraluminal Device, Via Natural or Artificial Opening Endoscopic (ICD-10-PCS; principal; 2017-10-25)
DX: K56.51 Intestinal adhesions [bands], with partial obstruction (principal); Z68.42 Body mass index [BMI] 45.0-49.9, adult; E11.65 Type 2 diabetes mellitus with hyperglycemia; N13.2 Hydronephrosis with renal and ureteral calculous obstruction; N39.0 Urinary tract infection, site not specified; E66.01 Morbid (severe) obesity due to excess calories; K43.2 Incisional hernia without obstruction or gangrene; R11.10 Vomiting, unspecified; I16.0 Hypertensive urgency; K42.9 Umbilical hernia without obstruction or gangrene; Z90.49 Acquired absence of other specified parts of digestive tract
CPT/HCPCS: 36415; 36416; 74000; 74177; 74250; 74420; 80053; 81003; 81015; 82553; 83036; 83605; 83690; 83735; 84100; 84484; 85025; 87040; 87070; 87086; 87205; 93005; 94760; 96374; 96375; 96376; C1758; C1769; C9113; J0131; J0360; J0696; J1200; J1650; J1885; J2001; J2250; J2270; J2405; J2543; J2704; J3010; J7050; Q9961

== ENCOUNTER 2017-12-08 09:14 | Outpatient (CLI) | payer BC ==
[2017-12-08 10:17] LABS: Hemoglobin 11.4 g/dL (12.0-16.0); Mean Corpuscular HGB CONC 32.1 g/dL (32.0-36.0); Mean Corpuscular Hemoglobin 28.3 pg (27.0-31.0); Mean Corpuscular Volume 88.1 fl (81.0-99.0); Mean Platelet Volume 8.2 fL (7.4-10.4); Platelet Count 367 thou/uL (130-400); RBC Distribution Width 12.4 % (11.5-14.5); Red Blood Cell (RBC) Count 4.04 mill/uL (4.20-5.40); White Blood Cell (WBC) Count 10.5 thou/uL (4.8-10.8)
[2017-12-08 10:36] LABS: Anion Gap 14 mmol/L (10-20); BUN (Urea Nitrogen) 11 mg/dL (9.8-20.1); Calc. Creatinine Clearance 0 mL/min (70-130); Carbon Dioxide 22 mmol/L (22-29); Chloride 105 mmol/L (98-107); Estimated GFR-MDRD 64; Glucose 173 mg/dL (70-105); Potassium 4.4 mmol/L (3.5-5.1); Sodium 137 mmol/L (136-145)
--- NOTE | 2017-12-09 23:35 | EKG ---
Test Reason : Blood Pressure : / mmHG Vent. Rate : 069 BPM Atrial Rate : 069 BPM P-R Int : 166 ms QRS Dur : 100 ms QT Int : 394 ms P-R-T Axes : 030 044 025 degrees QTc Int : 422 ms Normal sinus rhythm Normal ECG When compared with ECG of 25-OCT-2017 08:04, Vent. rate has decreased BY 49 BPM Questionable change in QRS axis Confirmed by Zora COVINGTON ([id number]) on 12/09/2017 11:34:52 PM Referred By: ADALBERTO Confirmed By:Zora COVINGTON
== END 2017-12-08 09:15 | disposition home or self-care (01) ==
LOC: LABBT 09:14
PROVIDERS: ATTEND Urology
DX: Z01.818 Encounter for other preprocedural examination (principal); N20.1 Calculus of ureter
CPT/HCPCS: 80048; 85027; 93005; 93010

== ENCOUNTER 2017-12-16 06:03 | Day surgery (SDC) | payer SELFPAY, OTHER ==
[2017-12-08 09:21] VITALS: BMI 49.1
[2017-12-16] MEDS ORDERED: CEFAZOLIN/Water 2 GM/20 ML SYRINGE ONE (06:44)
[2017-12-16] MEDS ORDERED: Fentanyl 100 MCG/2 ML VIAL ONE (07:27)
[2017-12-16] MEDS ORDERED: Furosemide 20 MG/2 ML VIAL ONE (07:53)
--- NOTE | 2017-12-16 08:12 | RAD ---
KUB: History: Pre op evaluation. FINDINGS/IMPRESSION: Comparison made with exam of 10-26-17. The previously noted nasogastric tube on the previous exam has been removed in the interim. Changes o f cholecystectomy are again seen. The right sided ureteral stent is unchanged in position. No suspici ous calcifications are seen. POS: [facility]
--- NOTE | 2017-12-16 13:26 | OP ---
DATE OF SERVICE: 12/16/2017 PREOPERATIVE DIAGNOSIS: Right ureteropelvic junction/renal stone. POSTOPERATIVE DIAGNOSIS: Right renal stone. SURGEON: Neelima Perez MD ANESTHESIA: General with endotracheal tube. FINDINGS: Adequate fragmentation of a very large stone with removal cystoscopically of prior indwell ing stent. SPECIMENS: None. COMPLICATIONS: None. DRAIN REMAINING: None. BLOOD LOSS: None. INDICATIONS FOR PROCEDURE: The patient is a 52-year-old female who was admitted acutely with partial small-bowel obstruction as well as an obstructing right stone. She underwent urgent stent. We have been trying to set her up for definitive therapy. The patient was brought to the room by anesthesia, lying on table in supine position. After receivin g general anesthetic, she was positioned to identify the stone in multiple planes and then a power le tanmay of 6/6 at a maximum rate of 70 per minute. A total of 3000 shocks were delivered to the approxim ately 2 cm renal pelvic stone. 10 mg of liquids was given at the beginning and at the end to facilit ate stone fragment passage during extracorporal shockwave lithotripsy. She was frog legged and then prepped and draped in the usual sterile fashion and a flexible cystoscope was used to grab the stent and remove it. The patient tolerated procedure well and was then awakened and transferred to PACU in stable condition.
[2017-12-16] MEDS ORDERED: Glycopyrrolate 0.2 MG/ML 5 ML SYRINGE ONE (15:17)
[2017-12-16] MEDS ORDERED: PROPOFOL 200 MG/20 ML VIAL ONE (15:17)
[2017-12-16] MEDS ORDERED: ePHEDrine/0.9% NaCl/PF SYRINGE 50 mg/10 ml ONE (15:17)
[2017-12-16] MEDS ORDERED: Lidocaine 1% PF 5 ML VIAL ONE (15:17)
[2017-12-16] MEDS ORDERED: PHENYLEPHRINE-NS 100 MCG/ML 10 ML SYRINGE ONE (15:17)
[2017-12-16] MEDS ORDERED: Ondansetron HCl/PF 4 MG/2 ML Vial ONE (15:17)
[2017-12-16] MEDS ORDERED: Dexamethasone 20 MG/5 ML VIAL ONE (15:17)
== END 2017-12-16 10:45 | disposition home or self-care (01) ==
LOC: SDC 06:03
PROVIDERS: ATTEND Urology
PROC: 0TP98DZ Removal of Intraluminal Device from Ureter, Via Natural or Artificial Opening Endoscopic (ICD-10-PCS; principal; 2017-12-16)
PROC: 0TF3XZZ Fragmentation in Right Kidney Pelvis, External Approach (ICD-10-PCS; principal; 2017-12-16)
DX: N20.0 Calculus of kidney (principal); I10 Essential (primary) hypertension; E11.9 Type 2 diabetes mellitus without complications; Z79.84 Long term (current) use of oral hypoglycemic drugs; Z79.899 Other long term (current) drug therapy; Z90.49 Acquired absence of other specified parts of digestive tract; Z98.890 Other specified postprocedural states
CPT/HCPCS: 74018; J1100; J1940; J2001; J2405; J2704; J3010